=== PATIENT | female | born 1985 | race Caucasian/White ===

== ENCOUNTER 2017-05-06 14:55 | Emergency (ER) | payer BC | END 2017-05-06 17:53 | disposition left against medical advice (07) | LOC: UCCORT 14:55 | DX: J34.89 Other specified disorders of nose and nasal sinuses (principal); R05 Cough; R50.9 Fever, unspecified; Z53.21 Procedure and treatment not carried out due to patient leaving prior to being seen by health care provider ==

== ENCOUNTER 2017-05-07 07:46 | Emergency (ER) | payer BC ==
[2017-05-07 08:17] VITALS: BP 116/82
--- NOTE | 2017-05-07 08:28 | UC ---
Respiratory Complaint HPI - HPI Summary HPI Summary: cough x 4 days + productive with yellow / green sputum + nasal congestion , sore throat, no fever, no chills no wheezing, no sob - History of Current Complaint Chief Complaint: UCRespiratory Stated Complaint: CHEST CONGESTION,HEADACHE Time Seen by Provider: 05/07/17 08:03 Hx Obtained From: Patient Hx Last Menstrual Period: 04/25/17 Onset/Duration: Gradual Onset, Lasting Days - 4, Still Present Timing: Constant Severity Initially: Moderate Severity Currently: Moderate Pain Intensity: 0 Character: Cough: Productive Aggravating Factors: Exertion, Deep Breaths Alleviating Factors: Nothing Associated Signs And Symptoms: Positive: URI, Nasal Congestion. Negative: Fever , Chills, Wheezing, Hemoptysis, Dizziness, Calf Pain, Calf Swelling, Hoarseness , Sinus Discomfort - Allergies/Home Medications Allergies/Adverse Reactions: Allergies Allergy/AdvReac Type Severity Reaction Status Date / Time amoxicillin Allergy Hives Verified 05/07/17 08:07 MS Gluten Meal [Gluten Meal] AdvReac Intermediate GI Upset Verified 05/07/17 08: 07 tree nuts Allergy Severe Swelling Uncoded 05/07/17 08:07 Of Face,Lips,& Throat shell fish Allergy Intermediate Hives Uncoded 05/07/17 08:07 Home Medications: Home Medications Losartan TAB* [Cozaar TAB*] 50 mg PO DAILY 05/07/17 [History Confirmed 05/07/17] O C 2 tab PO QAM 05/07/17 [History Confirmed 05/07/17] Pantoprazole Sodium 40 mg PO DAILY 05/07/17 [History Confirmed 05/07/17] PMH/Surg Hx/FS Hx/Imm Hx Endocrine History: Diabetes Respiratory History: Asthma - Surgical History Surgical History: Yes Surgery Procedure, Year, and Place: 2010 CHOLECYSTECTOMY- [facility],. 2009, 2011 LAP BANDS- [facility]. 11/10 SINUS SURGERY- [facility]. 2005 TONSILLECTOMY- [facility] ; gastric sleeve 2017 [place] - Family History Known Family History: Positive: Diabetes - Social History Alcohol Use: Rare Alcohol Amount: 1-2 DRINKS/MONTH Substance Use Type: None Smoking Status (MU): Never Smoked Tobacco Have You Smoked in the Last Year: No Household Exposure Type: Cigarettes Review of Systems Constitutional: Negative Skin: Negative Eyes: Negative ENT: Sore Throat, Nasal Discharge Respiratory: Cough Cardiovascular: Negative Is Patient Immunocompromised?: No All Other Systems Reviewed And Are Negative: Yes Physical Exam Triage Information Reviewed: Yes Appearance: Well-Appearing, No Pain Distress, Obese Vital Signs: Initial Vital Signs Temp 98.6 F 05/07/17 08:12 Pulse 100 05/07/17 08:12 Resp 20 05/07/17 08:12 BP 116/82 05/07/17 08:12 Pulse Ox 99 05/07/17 08:12 Vital Signs Reviewed: Yes Eyes: Positive: Conjunctiva Clear ENT: Positive: Normal ENT inspection, Hearing grossly normal, Pharynx normal, Nasal congestion, Nasal drainage, TMs normal Neck exam: Normal Neck: Positive: Supple, Nontender, No Lymphadenopathy Respiratory: Positive: Chest non-tender, Lungs clear, Normal breath sounds Cardiovascular: Positive: RRR, No Murmur, Pulses Normal Skin Exam: Normal UC Diagnostic Evaluation - Laboratory O2 Sat by Pulse Oximetry: 99 Respiratory Course/Dx - Differential Dx/Diagnosis Provider Diagnoses: Bronchitis Discharge - Discharge Plan Condition: Stable Disposition: HOME Prescriptions: Azithromycin TAB* [Zithromax TAB (Z-AURORA) 250 mg #6 tabs] 2 tab PO .TODAY, THEN 1 DAILY #1 [place] Codeine Phosphate/Guaifenesin [Cheratussin AC] 10 ml PO Q8H #120 ml MDD 30 ml Patient Education Materials: Acute Bronchitis (ED) Referrals: Kapil Pittman MD [Primary Care Provider] - If Needed
== END 2017-05-07 08:30 | disposition home or self-care (01) ==
LOC: UCCORT 07:46
DX: J40 Bronchitis, not specified as acute or chronic (principal); Z88.3 Allergy status to other anti-infective agents
CPT/HCPCS: 99212; G0463